=== PATIENT | male | born 1995 | race Caucasian/White ===

== ENCOUNTER 2017-04-03 18:43 | Emergency (ER) | payer SELFPAY ==
[2017-04-03 18:55] VITALS: BP 132/87; PULSE 84; TEMP 99.5; BMI 27.3
--- NOTE | 2017-04-03 20:32 | PDOC ---
History of Present Illness - General History Source: Patient Exam Limitations: No Limitations - History of Present Illness Initial Comments: 04/03/17 21:27 The patient is a 21 year old male, with no significant PMH who presents to the emergency department with twitching and hallucinations with an unclear onset. The patients mother reports that the patient has had difficulty sleeping the past couple of days. She reports that the patient had twitching movements yesterday night and she brought him into [facility], where they prescribed him Seroquel. The patient reports wanting to get more connected with God while in and visiting his local [place], where he learned about God from the double bottom driver there. He [place] coming to the [place] and being bought a phone by his mother, and reports watching pornography and feeling guilty. The patient also acknowledges hallucinations of demons and hearing voices. The patient is visibly twitching upon presentation but is able to provide history. The patient denies chest pain, shortness of breath, headache and dizziness. Denies fever, chills, nausea, vomit, diarrhea and constipation. Denies dysuria, frequency, urgency and hematuria. Allergies: NKA Past surgical history: None reported. Social history: No reported cigarette, alcohol, or drug use. PCP: None reported. <Sandor Padilla - Last Filed: 04/03/17 21:33> <Sanaz Enciso - Last Filed: 04/04/17 03:35> - General Chief Complaint: Psychiatric Stated Complaint: FATIGUE Time Seen by Provider: 04/03/17 20:31 Past History <Sandor Padilla - Last Filed: 04/03/17 21:33> - Past Medical History COPD: No Psychiatric Problems: Yes - Suicide/Smoking/Psychosocial Hx Smoking History: Never smoked Hx Alcohol Use: No Drug/Substance Use Hx: No <Sanaz Enciso - Last Filed: 04/04/17 03:35> - Past Medical History Allergies/Adverse Reactions: Allergies Allergy/AdvReac Type Severity Reaction Status Date / Time No Known Allergies Allergy Verified 04/03/17 18:46 Review of Systems - Review of Systems Able to Perform ROS?: Yes Comments:: 04/03/17 21:27 GENERAL/CONSTITUTIONAL: No fever or chills. No weakness. HEAD, EYES, EARS, NOSE AND THROAT: No change in vision. No ear pain or discharge. No sore throat. CARDIOVASCULAR: No chest pain or shortness of breath. RESPIRATORY: No cough, wheezing, or hemoptysis. GASTROINTESTINAL: No nausea, vomiting, diarrhea or constipation. GENITOURINARY: No dysuria, frequency, or change in urination. MUSCULOSKELETAL: No joint or muscle swelling or pain. No neck or back pain. SKIN: No rash NEUROLOGIC: (+) Twitching. (+) Auditory and visual hallucinations. No headache, vertigo, loss of consciousness, or change in strength ENDOCRINE: No increased thirst. No abnormal weight change. HEMATOLOGIC/LYMPHATIC: No anemia, easy bleeding, or history of blood clots. ALLERGIC/IMMUNOLOGIC: No hives or skin allergy. <Sandor Padilla - Last Filed: 04/03/17 21:33> *Physical Exam - Vital Signs Last Vital Signs Temp Pulse Resp BP Pulse Ox 99.5 F 84 22 132/87 98 04/03/17 18:47 04/03/17 18:47 04/03/17 18:47 04/03/17 18:47 04/03/17 18:47 - Physical Exam Comments: 04/03/17 21:28 GENERAL: Awake, alert, and fully oriented, in no acute distress HEAD: No signs of trauma EYES: PERRLA, EOMI, sclera anicteric, conjunctiva clear ENT: Auricles normal inspection, hearing grossly normal, nares patent, oropharynx clear without exudates. Moist mucosa NECK: Normal ROM, supple, no lymphadenopathy, JVD, or masses LUNGS: Breath sounds equal, clear to auscultation bilaterally. No wheezes, and no crackles HEART: Regular rate and rhythm, normal S1 and S2, no murmurs, rubs or gallops ABDOMEN: Soft, nontender, normoactive bowel sounds. No guarding, no rebound. No masses EXTREMITIES: Normal range of motion, no edema. No clubbing or cyanosis. No cords, erythema, or tenderness NEUROLOGICAL: Cranial nerves II through XII grossly intact. Normal speech. SKIN: Warm, Dry, normal turgor, no rashes or lesions noted. <Sandor Padilla - Last Filed: 04/03/17 21:33> - Vital Signs Last Vital Signs Temp Pulse Resp BP Pulse Ox 99.5 F 84 22 132/87 98 04/03/17 18:47 04/03/17 18:47 04/03/17 18:47 04/03/17 18:47 04/03/17 18:47 <Sanaz Enciso - Last Filed: 04/04/17 03:35> ED Treatment Course - LABORATORY CBC & Chemistry Diagram: 04/03/17 21:42 04/03/17 23:30 <Sanaz Enciso - Last Filed: 04/04/17 03:35> Medical Decision Making - Medical Decision Making 04/03/17 21:05 Pt comes with movement disorder; spasms of his body and tremors. He has auditory and visual hallucinations. Sees demons and hears voices that tell him to serve god. He is under stress as he used to go to [employer] in [facility] [place] and a double bottom driver told him the word of God. [place] came to the [place] and mom got him a cell phone and he began watching porn. Pt states that his mom wants him to get a job. Pt has depressed affect and he speaks slowly. Pt was at [facility] yesterday and they gave him 100mg seroquel. Pt has no suicidal ideation and no homicidal ideation and voices in his head do not tell him to hurt himself or others. 04/03/17 23:31 Patient Name: PARAG CHRISTOPHER THIS IS A PRELIMINARY REPORT FROM [facility] DATE OF SERVICE: 2017-04-03 22:59:12 IMAGES: 142 EXAM: CT HEAD without contrast HISTORY: Tremors COMPARISON: None. FINDINGS: Brain parenchyma is normal in attenuation with no mass or hematoma. There is no midline shift. Irvin and white matter differentiation is normal. Ventricles are normal. Sulci and extra-axial CSF spaces are normal. Intracranial vascular structures are normal in attenuation. There is no calvarial fracture. Paranasal sinuses are normally aerated. IMPRESSION: Normal head THIS DOCUMENT HAS BEEN ELECTRONICALLY SIGNED 04/04/17 03:34 Labs are normal; pt will be sent home; follow with psych outpatient <Sanaz Enciso - Last Filed: 04/04/17 03:35> *DC/Admit/Observation/Transfer - Attestations Scribe Attestion: 04/03/17 21:29 Documentation prepared by Sandor Padilla, acting as medical psychotherapist for Sanaz Enciso MD. <Sandor Padilla - Last Filed: 04/03/17 21:33> - Discharge Dispostion Admit: No <Sanaz Enciso - Last Filed: 04/04/17 03:35> Diagnosis at time of Disposition: Schizophrenia - Discharge Dispostion Disposition: HOME Condition at time of disposition: Stable - Referrals Referrals: Joaquín Chan MD [Staff Physician] - - Patient Instructions Printed Discharge Instructions: DI for Schizophrenia Print Language: KINYARWANDA
[2017-04-03 21:46] LABS: BASOPHIL 0.7 % (0-2.0); EOSINOPHIL 0.8 % (0-4.5); MCH 29.9 pg (25.7-33.7); MEAN CELL VOLUME 90.6 fl (80-96); MEAN PLT VOLUME 9.3 fl (7.5-11.1); PLATELET COUNT 258 K/MM3 (134-434); RDW 12.4 % (11.9-15.9); WHITE BLOOD COUNT 14.5 K/mm3 (4.0-10.0)
[2017-04-03 21:58] LABS: INR 1.1 (0.82-1.09); PROTHROMBIN TIME (PATIENT) 12.4 SEC (9.98-11.88)
[2017-04-04 00:09] LABS: ALBUMIN 4.5 g/dl (3.4-5.0); ANION GAP 9 (8-16); BILIRUBIN,TOTAL 0.5 mg/dL (0.2-1.0); CALCIUM 9.1 mg/dL (8.5-10.1); CO2 26 mmol/L (21-32); CREATININE 0.8 mg/dL (0.7-1.3); GLUCOSE,RANDOM 104 mg/dL (74-106); SGOT/AST 16 U/L (15-37); SGPT/ALT 31 U/L (12-78); TOT PROT 8.7 g/dl (6.4-8.2)
[2017-04-04 00:10] LABS: ALK PHOS 92 U/L (45-117)
== END 2017-04-04 01:07 | disposition home or self-care (01) ==
LOC: JER 18:43
PROC: 3E023NZ Introduction of Analgesics, Hypnotics, Sedatives into Muscle, Percutaneous Approach (ICD-10-PCS; principal; 2017-04-03)
DX: F20.9 Schizophrenia, unspecified (principal)
CPT/HCPCS: 36415; 70450-TC; 71020-TC; 80053; 85025; 85610; 85730; 99282-25

== ENCOUNTER 2017-04-06 16:54 | Emergency (ER) | payer SELFPAY ==
[2017-04-06 17:05] VITALS: BP 137/88; PULSE 85; TEMP 98; BMI 23.5
--- NOTE | 2017-04-06 17:06 | PDOC ---
Rapid Medical Evaluation Chief Complaint: Psychiatric Time Seen by Provider: 04/06/17 17:03 Medical Evaluation: Allergies Allergy/AdvReac Type Severity Reaction Status Date / Time No Known Allergies Allergy Verified 04/03/17 18:46 04/06/17 17:04 I have performed a brief in-person evaluation of this patient. The patient presents with a chief complaint of: confusion, twitching Pertinent physical exam findings: confusion, twitching, VSS I have ordered the following: none The patient will proceed to the ED for further evaluation.
--- NOTE | 2017-04-06 18:00 | PDOC ---
History of Present Illness - General History Source: Patient, Family, Old Records Exam Limitations: No Limitations - History of Present Illness Initial Comments: 04/06/17 20:32 The patient is a 21 year old male presenting with his mother, with a significant past medical history of schizophrenia, who presents to the emergency department with twitching and sore throat. The patient was seen in the ED on 04/03/2017 for psychiatric issues, where he was hearing voices and experiences hallucinations. Today he notes that he is not experiencing any of these symptoms. His mother notes that the patient had been working but has postponed his job due to issues he was previously experiencing. Before presentation, a psychiatric consult was called in and the physician came to see the patient. The patient denies chest pain, shortness of breath, headache and dizziness. Denies fever, chills, nausea, vomit, diarrhea and constipation. Allergies: None Past surgical history: None reported Social history: No alcohol, tobacco or drug use reported <Rigoberto Sawant - Last Filed: 04/06/17 20:31> <Vilma Ramirez - Last Filed: 04/06/17 21:26> - General Chief Complaint: Psychiatric Stated Complaint: EVALUATION Time Seen by Provider: 04/06/17 17:03 Past History <Rigoberto Sawant - Last Filed: 04/06/17 20:31> - Past Medical History COPD: No Psychiatric Problems: Yes ("SCHZO") - Immunization History Immunization Up to Date: Yes - Suicide/Smoking/Psychosocial Hx Smoking History: Never smoked Have you smoked in the past 12 months: No Information on smoking cessation initiated: No Hx Alcohol Use: No Drug/Substance Use Hx: No Substance Use Type: None <Vilma Ramirez - Last Filed: 04/06/17 21:26> - Past Medical History Allergies/Adverse Reactions: Allergies Allergy/AdvReac Type Severity Reaction Status Date / Time No Known Allergies Allergy Verified 04/03/17 18:46 Review of Systems - Review of Systems Able to Perform ROS?: Yes Comments:: 04/06/17 20:31 GENERAL/CONSTITUTIONAL: No fever or chills. No weakness. HEAD, EYES, EARS, NOSE AND THROAT: (+) Sore throat. No change in vision. No ear pain or discharge. CARDIOVASCULAR: No chest pain or shortness of breath RESPIRATORY: No cough, wheezing, or hemoptysis. GASTROINTESTINAL: No nausea, vomiting, diarrhea or constipation. GENITOURINARY: No dysuria, frequency, or change in urination. MUSCULOSKELETAL: No joint or muscle swelling or pain. No neck or back pain. SKIN: No rash NEUROLOGIC: (+) Twitching. No headache, vertigo, loss of consciousness, or change in strength/sensation. ENDOCRINE: No increased thirst. No abnormal weight change HEMATOLOGIC/LYMPHATIC: No anemia, easy bleeding, or history of blood clots. ALLERGIC/IMMUNOLOGIC: No hives or skin allergy. <Rigoberto Sawant - Last Filed: 04/06/17 20:31> *Physical Exam - Vital Signs Last Vital Signs Temp Pulse Resp BP Pulse Ox 98.0 F 85 16 137/88 98 04/06/17 16:59 04/06/17 16:59 04/06/17 16:59 04/06/17 16:59 04/06/17 16:59 - Physical Exam Comments: 04/06/17 20:31 GENERAL: Awake, alert, and fully oriented, in no acute distress HEAD: No signs of trauma, normocephalic, atraumatic EYES: PERRLA, EOMI, sclera anicteric, conjunctiva clear ENT: Auricles normal inspection, hearing grossly normal, nares patent, oropharynx clear without exudates. Moist mucosa NECK: Normal ROM, supple, no lymphadenopathy, JVD, or masses LUNGS: No distress, speaks full sentences, clear to auscultation bilaterally HEART: Regular rate and rhythm, normal S1 and S2, no murmurs, rubs or gallops, peripheral pulses normal and equal bilaterally. ABDOMEN: Soft, nontender, normoactive bowel sounds. No guarding, no rebound. No masses EXTREMITIES : Normal inspection, Normal range of motion, no edema. No clubbing or cyanosis. NEUROLOGICAL: Cranial nerves II through XII grossly intact. Normal speech, normal gait, no focal sensorimotor deficits SKIN: Warm, Dry, normal turgor, no rashes or lesions noted. <Rigoberto Sawant - Last Filed: 04/06/17 20:31> - Vital Signs Last Vital Signs Temp Pulse Resp BP Pulse Ox 98.0 F 85 16 137/88 98 04/06/17 16:59 04/06/17 16:59 04/06/17 16:59 04/06/17 16:59 04/06/17 16:59 <Vilma Ramirez - Last Filed: 04/06/17 21:26> ED Treatment Course - LABORATORY CBC & Chemistry Diagram: 04/06/17 18:10 04/06/17 18:10 - ADDITIONAL ORDERS Additional order review: Laboratory Results 04/06/17 18:10 Sodium Cancelled Potassium Cancelled Chloride Cancelled Carbon Dioxide Cancelled Anion Gap Cancelled BUN Cancelled Creatinine Cancelled Creat Clearance w eGFR Cancelled Random Glucose Cancelled Calcium Cancelled Total Bilirubin Cancelled AST Cancelled ALT Cancelled Alkaline Phosphatase Cancelled Total Protein Cancelled Albumin Cancelled 04/06/17 18:10 RBC 4.96 MCV 90.4 MCHC 33.2 RDW 12.2 MPV 9.2 Neutrophils % 72.2 Lymphocytes % 18.9 Monocytes % 6.8 Eosinophils % 1.2 Basophils % 0.9 - Medications Given in the ED: ED Medications Discontinued Medications Generic Name Dose Route Start Last Admin Trade Name Rola PRN Reason Stop Dose Admin Diphenhydramine HCl 25 mg 04/06/17 19:08 04/06/17 20:01 Benadryl Injection - IVPUSH 04/06/17 19:09 25 mg ONCE ONE Administration <Rigoberto Sawant - Last Filed: 04/06/17 20:31> - LABORATORY CBC & Chemistry Diagram: 04/06/17 18:10 04/06/17 19:35 <Vilma Ramirez - Last Filed: 04/06/17 21:26> *DC/Admit/Observation/Transfer - Attestations Scribe Attestion: 04/06/17 20:31 Documentation prepared by Rigoberto Sawant, acting as electromedical equipment technician for Vilma Ramirez MD <Rigoberto Sawant - Last Filed: 04/06/17 20:31> <Vilma Ramirez - Last Filed: 04/06/17 21:26> Diagnosis at time of Disposition: Movement disorder Schizophrenia Qualifiers: Schizophrenia type: other Qualified Code(s): F20.89 - Other schizophrenia - Discharge Dispostion Disposition: HOME Condition at time of disposition: Stable - Referrals Referrals: Joaquín Chan MD [Staff Physician] - Dima Colon [Primary Care Provider] - Samy Christine NP [Nurse Practitioner] - Karel Rain MD [Staff Physician] - - Patient Instructions Printed Discharge Instructions: DI for Schizophrenia, Dystonia Movement Disorders Additional Instructions: please followup with the psychiatrist The person you saw today is Samy Christine NP . Her telephone number is [phone] . Her address is [address] [place] [address] Chan is a psychiatrist you may followup with. I have given you the name of a neurologist to follow up with to discuss the movement disorder Print Language: HONG KONGER - Post Discharge Activity
[2017-04-06 18:14] LABS: BASOPHIL 0.9 % (0-2.0); EOSINOPHIL 1.2 % (0-4.5); MCHC 33.2 g/dl (32.0-35.9); MEAN CELL VOLUME 90.4 fl (80-96); MEAN PLT VOLUME 9.2 fl (7.5-11.1); NEUTROPHILS 72.2 % (42.8-82.8); PLATELET COUNT 234 K/MM3 (134-434); RDW 12.2 % (11.9-15.9); WHITE BLOOD COUNT 12.7 K/mm3 (4.0-10.0)
--- NOTE | 2017-04-06 19:07 | CON.PSY ---
Psychiatry Consult Chief Complaint: 21 year old male with involuntary twitching mostly of the lower limbs. History of Present Problem: Patient is here accompanied by his mother. Mother states that her son has a hx of some kind of mental health illness and he was placed on meds for some time now? and she stopped that medications couple of months ago. ( hx vague) She then noticed some involuntary twitching movements and he was brought to to [facility] and to [facility]. He was recently given seroquel 100mgs and a follow up appointment was made with , attending psychiatrist Today, she brought him back to the ER for both twitching and c/o of a 'throat infection. He denies information systems auditor hallucinations, visual hallucination or other psychotic symptoms. Reports adequate sleep with seroquel - Previous Substance Abuse Treatment Outpatient: None - Allergies Allergies: Allergies Allergy/AdvReac Type Severity Reaction Status Date / Time No Known Allergies Allergy Verified 04/03/17 18:46 - Current Mental Status Evaluation Appearance: Other (dressed appropriately for the weather and situatin) - Affect Affect: Constrictive - Mood Mood: Other (neutral) - Speech/Language Expressive: Delayed Receptive: Delayed Receptive Comprehension - Psychomotor Activity Psychomotor Activity: Slowed - Thought Process Thought Process: Intact - Thought Content Hallucinations: Absent Delusions: Absent - Self Perception Self Perception: No Impairment - Cognition Orientation: Time, Person, Place Memory, Immediate Recall: Impaired Memory, Remote: Impaired - Abstraction Proverb Interpretation: Impaired - Insight Insight: Impaired - Suicidal Ideation Suicidal Ideation: No - Homicidal Ideation Homicidal Ideation: No Assessment/Plan Patient was having these symptoms before the start of seroquel. After prolonged use of a psychotic medication side effects can occur with abrupt discontinuation- During the encounter, it was noted that there was only one occurrence of mild twitching. He was basically free from involuntary movements Rec Continue current medications- seroquel He will be followed by psychiatrist. Not psychotic at this time Benadryl prn
[2017-04-06 20:27] LABS: ALBUMIN 4.5 g/dl (3.4-5.0); ALK PHOS 95 U/L (45-117); ANION GAP 7 (8-16); BILIRUBIN,TOTAL 0.9 mg/dL (0.2-1.0); CALCIUM 9.2 mg/dL (8.5-10.1); CO2 26 mmol/L (21-32); CREATININE 0.9 mg/dL (0.7-1.3); GLUCOSE,RANDOM 110 mg/dL (74-106); SGOT/AST 18 U/L (15-37); SGPT/ALT 37 U/L (12-78); TOT PROT 8.6 g/dl (6.4-8.2)
== END 2017-04-06 21:38 | disposition home or self-care (01) ==
LOC: JER 16:54
PROC: 3E033GC Introduction of Other Therapeutic Substance into Peripheral Vein, Percutaneous Approach (ICD-10-PCS; principal; 2017-04-06)
DX: F20.89 Other schizophrenia (principal)
CPT/HCPCS: 36415; 80053; 85025; 99282-25

== ENCOUNTER 2017-04-09 17:15 | Emergency (ER) | payer SELFPAY ==
[2017-04-09 17:20] VITALS: BP 139/83; PULSE 98; TEMP 99.5; BMI 27.3
[2017-04-09] MEDS ORDERED: SODIUM CHLORIDE 0.9% 1000 ML INFUS.BAG IV ONE (18:30)
[2017-04-09] MEDS ORDERED: KETOROLAC TROMETHAMINE 30 MG/1 ML VIAL IVPUSH ONE (18:33)
[2017-04-09] MEDS ORDERED: METOCLOPRAMIDE HCL INJECTION 10 MG/2 ML VIAL IVPUSH ONE (18:34)
--- NOTE | 2017-04-09 18:47 | PDOC ---
History of Present Illness - General History Source: Patient Exam Limitations: No Limitations - History of Present Illness Initial Comments: 04/09/17 18:51 The patient is a 21 year old male, with a significant past medical history of Seizures, Schizophrenia, who presents to the emergency department with headache. Mother provides hx as patient is a poor historian. As per mother, patient is having persistent headaches and body twitching. Patient was seen in the ED on 04/06/2017 for the same complaint and was sent to follow up with PCP. Patient visited PCP office and was given referral to Neurologist. Mother notes recent change in medications including Quetiapine and Divalproex. The patient is visibly twitching upon presentation. Patient denies any auditory or visual hallucinations. Patient denies any SI, HI. He denies chest pain or dizziness. He denies fever, chills, abdominal pain, nausea, vomit, diarrhea or constipation. He denies dysuria, frequency, urgency or hematuria. Patient denies sick contacts or recent travel. Allergies: NKA Past surgical history: None Social history: None PCP: Dr. Dima Colon Neuro: Ruben <Genesis Morley - Last Filed: 04/09/17 18:53> <Gloria Martinez - Last Filed: 04/09/17 19:28> - General Chief Complaint: Headache Stated Complaint: SEVERE HEADACHE, REVISIT Past History <Genesis Morley - Last Filed: 04/09/17 18:53> - Past Medical History COPD: No Psychiatric Problems: Yes ("SCHZO") Seizures: Yes - Immunization History Immunization Up to Date: Yes - Suicide/Smoking/Psychosocial Hx Smoking History: Never smoked Have you smoked in the past 12 months: No Information on smoking cessation initiated: No Hx Alcohol Use: No Drug/Substance Use Hx: No Substance Use Type: None <Gloria Martinez - Last Filed: 04/09/17 19:28> - Past Medical History Allergies/Adverse Reactions: Allergies Allergy/AdvReac Type Severity Reaction Status Date / Time No Known Allergies Allergy Verified 04/09/17 17:20 Review of Systems - Review of Systems Able to Perform ROS?: Yes Comments:: 04/09/17 18:51 GENERAL/CONSTITUTIONAL: No fever or chills. No weakness. HEAD, EYES, EARS, NOSE AND THROAT: No change in vision. No ear pain or discharge. No sore throat. GASTROINTESTINAL: No nausea, vomiting, diarrhea or constipation. GENITOURINARY: No dysuria, frequency, or change in urination. CARDIOVASCULAR: No chest pain or shortness of breath. RESPIRATORY: No cough, wheezing, or hemoptysis. MUSCULOSKELETAL: No joint or muscle swelling or pain. No neck or back pain. SKIN: No rash NEUROLOGIC: +headache. No vertigo, loss of consciousness, or change in strength/ sensation. ENDOCRINE: No increased thirst. No abnormal weight change. HEMATOLOGIC/LYMPHATIC: No anemia, easy bleeding, or history of blood clots. ALLERGIC/IMMUNOLOGIC: No hives or skin allergy. <Genesis Morley - Last Filed: 04/09/17 18:53> *Physical Exam - Vital Signs Last Vital Signs Temp Pulse Resp BP Pulse Ox 99.5 F 98 H 19 139/83 99 04/09/17 17:17 17 17:17 04/09/17 17:17 04/09/17 17:17 04/09/17 17:17 - Physical Exam Comments: 04/09/17 18:51 GENERAL: Awake, alert, and fully oriented, in no acute distress HEAD: No signs of trauma EYES: PERRLA, EOMI, sclera anicteric, conjunctiva clear ENT: Auricles normal inspection, nares patent, Moist mucosa NECK: Normal ROM, supple, no lymphadenopathy, JVD, or masses LUNGS: Breath sounds equal, clear to auscultation bilaterally. No wheezes, and no crackles HEART: Regular rate and rhythm, normal S1 and S2, no murmurs, rubs or gallops ABDOMEN: Soft, nontender, normoactive bowel sounds. No guarding, no rebound. No masses EXTREMITIES: Normal range of motion, no edema. No clubbing or cyanosis. No cords, erythema, or tenderness NEUROLOGICAL: Normal speech PSYC: +Odd affect. Odd behaviours,Occasionally twitching. Poor eye contact SKIN: Warm, Dry, normal turgor, no rashes or lesions noted. <Genesis Morley - Last Filed: 04/09/17 18:53> - Vital Signs Last Vital Signs Temp Pulse Resp BP Pulse Ox 99.5 F 98 H 19 139/83 99 04/09/17 17:17 04/09/17 17:17 04/09/17 17:17 04/09/17 17:17 04/09/17 17:17 <Gloria Martinez - Last Filed: 04/09/17 19:28> Medical Decision Making - Medical Decision Making 04/09/17 18:53 Dr. Colon paged via phone answering service. Awaiting call back. <Peyman,Genesis - Last Filed: 04/09/17 18:53> - Medical Decision Making 04/09/17 18:42 21-year-old male with a history of schizoaffective disorder followed by Dr. Colon brought here today with his mother for complaint of a headache. And sore throat patient was seen in the ER on 1114 3 days prior for similar complaints. At that time was evaluated by psychiatry. Patient has recently been started on quetiapine and is still taking Depakote. Is currently denying hallucinations or other drug use. Patient's family denies the patient has had any odd behavior recently except for occasionally twitching. No fevers chills, nausea, vomiting, no head trauma. I evaluation on patient did have a CT scan of the head which was unremarkable On exam patient is awake alert demonstrates an odd affect head is atraumatic theses are symmetric and lung exam was clear lungs bilaterally heart is regular without murmurs rubs or gallops. Abdomen is soft and nontender. Extremities are warm and well perfused. Neuro awake alert and oriented 3 5 out of 5 strength all 4 extremities psychiatric patient demonstrates odd affect and bizarre behaviors appears to be internally preoccupied at times denies auditory hallucinations or visual hallucinations Plan differential includes medication side effects electrolyte abnormality migraine dehydration. Plan valproic acid level, IV hydration and pain control with reassessment. At this point family feels patient is a no harm to himself or themselves. He has an appointment with psychiatrist in 4 days. We'll reassess for pain control following medication, 04/09/17 19:27 d/w family regarding pt diagnosis of schizoaffective disorder. she refused blood work. offere pain medication for headache. would like to go home. has followup with psychiatrist and nuerologist. ct head obtained 3 days ago was normal. pt and family left prior to receiving instructions. or medications <Gloria Martinez - Last Filed: 04/09/17 19:28> *DC/Admit/Observation/Transfer - Attestations Scribe Attestion: 04/09/17 18:51 Documentation prepared by Genesis Morley, acting as medical technologist prn for Gloria Martinez MD <Genesis Morley - Last Filed: 04/09/17 18:53> <Gloria Martinez - Last Filed: 04/09/17 19:28> Diagnosis at time of Disposition: Headache - Discharge Dispostion Disposition: ELOPED Condition at time of disposition: Good - Referrals Referrals: Pacheco Kennedy MD [Staff Physician] - - Patient Instructions Printed Discharge Instructions: Migraine -- Adult Additional Instructions: need to follow up with nuerologist. dr kennedy. call to schedule. return for any problems or concerns.follow up with psychiatrist as scheduled. take motrin 600 mg every 8 hours as needed for pain.
[2017-04-09] MEDS ORDERED: METOCLOPRAMIDE HCL INJECTION 10 MG/2 ML VIAL ONE (19:12)
[2017-04-09] MEDS ORDERED: KETOROLAC TROMETHAMINE 30 MG/1 ML VIAL ONE (19:13)
[2017-04-09] MEDS ORDERED: LORazepam 2 MG/ML SDV VIAL ONE (19:13)
== END 2017-04-09 19:26 | disposition left against medical advice (07) ==
LOC: JER 17:15
DX: R51 Headache (principal); R25.3 Fasciculation; F25.9 Schizoaffective disorder, unspecified; G40.509 Epileptic seizures related to external causes, not intractable, without status epilepticus
CPT/HCPCS: 99281-25

== ENCOUNTER 2021-01-15 20:11 | Emergency (ER) | payer OTHER ==
[2021-01-15 20:44] VITALS: TEMP 97.9; BMI 29.2
[2021-01-15] MEDS ORDERED: AMOX TR/POT CLAV 875MG/125MG TABLETS (FP) PO ONE (21:52)
[2021-01-15] MEDS ORDERED: AMOX TR/POT CLAV 875MG/125MG TABLETS (FP) ONE ×2 (22:09)
[2021-01-15 22:39] VITALS: BP 138/66; PULSE 80
== END 2021-01-15 22:39 | disposition home or self-care (01) ==
LOC: JER 20:11
DX: H66.92 Otitis media, unspecified, left ear (principal)
CPT/HCPCS: 99283-25

== ENCOUNTER 2021-01-20 23:05 | Emergency (ER) | payer OTHER ==
[2021-01-20 23:26] VITALS: TEMP 98; BMI 28.5
[2021-01-21 00:47] LABS: BASO % 0.9 % (0-2.0); EOS % 1.6 % (0-4.5); HEMATOCRIT 37.2 % (35.4-49); HEMOGLOBIN 12.6 GM/dL (11.7-16.9); LYMPH % 22.6 % (8-40); MCH 30.6 pg (25.7-33.7); MCHC 33.7 g/dl (32.0-35.9); MEAN CELL VOLUME 90.9 fl (80-96); MEAN PLT VOLUME 8.6 fl (7.5-11.1); MONO % 6.8 % (3.8-10.2); NEUT % 68.1 % (42.8-82.8); PLATELET COUNT 295 10^3/uL (134-434); RDW 12.1 % (11.9-15.9); WHITE BLOOD COUNT 15.4 K/mm3 (4.0-10.0)
[2021-01-21 01:06] LABS: CHLORIDE 105 mmol/L (98-107); SODIUM 137 mmol/L (136-145)
[2021-01-21 01:08] LABS: CALCIUM 8.9 mg/dL (8.5-10.1); CO2 26 mmol/L (21-32)
[2021-01-21 01:09] LABS: ALBUMIN 3.8 g/dl (3.4-5.0); BLOOD UREA NITROGEN 12.9 mg/dL (7-18); GLUCOSE,RANDOM 152 mg/dL (74-106)
[2021-01-21 01:12] LABS: CREATININE 1.1 mg/dL (0.55-1.3); SGOT/AST 84 U/L (15-37); SGPT/ALT 41 U/L (13-61)
[2021-01-21 01:13] LABS: BILIRUBIN,TOTAL 0.8 mg/dL (0.2-1); TOT PROT 8.3 g/dl (6.4-8.2)
[2021-01-21 01:14] LABS: ALK PHOS 81 U/L (45-117)
[2021-01-21] MEDS ORDERED: LACTATED RINGERS SOLUTION 1000 ML INFUS.BAG IV ONE (01:23)
[2021-01-21] MEDS ORDERED: KETOROLAC TROMETHAMINE 30 MG/1 ML VIAL IVPUSH ONE (01:45)
[2021-01-21 01:46] VITALS: BP 130/84; PULSE 88
[2021-01-21 01:47] LABS: ANION GAP 6 MMOL/L (8-16)
[2021-01-21] MEDS ORDERED: KETOROLAC TROMETHAMINE 30 MG/1 ML VIAL ONE (02:05)
[2021-01-21 02:35] LABS: MAGNESIUM 2.3 mg/dL (1.8-2.4)
== END 2021-01-21 02:52 ==
LOC: JER 23:05
PROC: 3E0333Z Introduction of Anti-inflammatory into Peripheral Vein, Percutaneous Approach (ICD-10-PCS; principal; 2021-01-21)
DX: R42 Dizziness and giddiness (principal); R19.7 Diarrhea, unspecified
CPT/HCPCS: 36415; 71046-TC-FY; 80053; 82550; 82553; 82962; 83735; 84132; 84484; 85025; 93005; 93010; 99284-25

== ENCOUNTER 2022-02-09 14:35 | Emergency (ER) | payer OTHER ==
[2022-02-09 14:49] VITALS: BP 138/64; PULSE 81; RESP 18; TEMP 97.5; BMI 27.3
== END 2022-02-09 15:36 | disposition home or self-care (01) ==
LOC: JERFT 14:35
DX: H66.92 Otitis media, unspecified, left ear (principal)
CPT/HCPCS: 99281-25

== ENCOUNTER 2023-05-16 19:19 | Emergency (ER) | payer OTHER ==
[2023-05-16 19:52] VITALS: BP 148/108; PULSE 77; RESP 18; TEMP 98.1; BMI 26.4
[2023-05-16] MEDS ORDERED: SODIUM CHLORIDE 0.9% 500 ML INFUS.BAG IV ONE (21:47)
[2023-05-16] MEDS ORDERED: ACETAMINOPHEN 1000 MG/100 ML BAG IVPB ONE (21:47)
[2023-05-16] MEDS ORDERED: ACETAMINOPHEN INJECTION 100 ML IVPB ONE (21:54)
[2023-05-16 22:14] LABS: BASO % 1.1 % (0-2.0); EOS % 1.1 % (0-4.5); HEMATOCRIT 44.5 % (35.4-49); HEMOGLOBIN 15.1 GM/dL (11.7-16.9); LYMPH % 34.4 % (8-40); MCH 29.3 pg (25.7-33.7); MCHC 33.9 g/dl (32.0-35.9); MEAN CELL VOLUME 86.4 fl (80-96); MEAN PLT VOLUME 9.5 fl (7.5-11.1); MONO % 6.1 % (3.8-10.2); NEUT % 57.3 % (42.8-82.8); PLATELET COUNT 307 10^3/uL (134-434); RBC 5.15 M/mm3 (4.00-5.60); RDW 12.9 % (11.9-15.9)
[2023-05-17] LABS: POTASSIUM 3.7 mmol/L (3.5-5.1)
[2023-05-17 00:02] LABS: CALCIUM 9.2 mg/dL (8.5-10.1)
[2023-05-17 00:03] LABS: ALBUMIN 3.7 g/dl (3.4-5.0); BLOOD UREA NITROGEN 11.3 mg/dL (7-18)
[2023-05-17 00:06] LABS: CREATININE 0.7 mg/dL (0.55-1.3)
[2023-05-17 00:08] LABS: BILIRUBIN,TOTAL 0.2 mg/dL (0.2-1); TOT PROT 7.4 g/dl (6.4-8.2)
== END 2023-05-17 00:20 | disposition home or self-care (01) ==
LOC: JER 19:19
PROC: 3E033NZ Introduction of Analgesics, Hypnotics, Sedatives into Peripheral Vein, Percutaneous Approach (ICD-10-PCS; principal; 2023-05-16)
DX: R51.9 Headache, unspecified (principal); H53.8 Other visual disturbances; G43.909 Migraine, unspecified, not intractable, without status migrainosus; Z20.822 Contact with and (suspected) exposure to COVID-19
CPT/HCPCS: 0241U-QW; 36415; 70450-TC; 80053; 85025; 99284-25